=== PATIENT | female | born 1970 | race Caucasian/White ===

== ENCOUNTER 2019-08-13 08:41 | Outpatient (CLI) | payer OTHER | END 2019-08-13 08:51 | disposition home or self-care (01) | LOC: SONOGRAMA 08:41 | PROVIDERS: ATTEND Pathology Anatomic Pathology & Clinical Pathology | DX: E04.2 Nontoxic multinodular goiter (principal) ==

== ENCOUNTER 2020-02-21 10:28 | Outpatient (CLI) | payer OTHER | END 2020-02-21 10:48 | disposition home or self-care (01) | LOC: SONOGRAMA 10:28 | PROVIDERS: ATTEND Pathology Anatomic Pathology & Clinical Pathology | DX: E04.1 Nontoxic single thyroid nodule (principal) ==